=== PATIENT | male | born 1990 | race Caucasian/White ===

== ENCOUNTER 2016-12-21 10:12 | Observation (INO) | payer OTHER ==
--- NOTE | 2016-12-21 11:14 | ED ---
General Adult HPI - General Chief complaint: Chest Pain Stated complaint: Chest/arm pain Time Seen by Provider: 12/21/16 10:30 Source: patient, RN notes reviewed Mode of arrival: ambulatory Limitations: no limitations - History of Present Illness Initial comments: This is a 26-year-old male who presents emergency Department complaining of chest pain. Patient states he has a strong family history of heart problems. Patient states over the last 2 weeks he has been having some left-sided chest pain starts off as sharp but then just becomes a dull ache and it usually last between one and 2 hours. Patient states he is noted that his worse if he takes a deep breath once the pain starts per patient states this happened almost every day. Patient does not notice it happening with exertion. Patient states he is not short of breath but it hurts to breathe so he doesn't take deep breaths. Patient states yesterday it hurt so bad he passed out and his roommate told him he was passed out for about 10 minutes. Patient denies any significant pain currently patient denies any shortness of breath. Patient states that the pain earlier today radiated down his left arm and that is when he became concerned so he came to the emergency department. Patient denies any diaphoresis. Patient denies any nausea or vomiting. Patient denies abdominal pain. Patient denies any recent injury or trauma. Patient states that moving his upper some resistance does not cause him any pain in the chest. - Related Data Home Medications Medication Instructions Recorded Confirmed No Known Home Medications [No 08/16/15 12/21/16 Known Home Medications] Allergies Allergy/AdvReac Type Severity Reaction Status Date / Time No Known Allergies Allergy Verified 12/21/16 11:05 Review of Systems ROS Statement: Those systems with pertinent positive or pertinent negative responses have been documented in the HPI. ROS Other: All systems not noted in ROS Statement are negative. Past Medical History Past Medical History: No Reported History History of Any Multi-Drug Resistant Organisms: None Reported Past Surgical History: Hernia Repair Past Psychological History: No Psychological Hx Reported Smoking Status: Never smoker Past Alcohol Use History: Occasional Past Drug Use History: None Reported General Exam - General Exam Comments Initial Comments: GENERAL: Patient is well-developed and well-nourished. Patient is nontoxic and well- hydrated and is in distress. ENT: Neck is soft and supple. No significant lymphadenopathy is noted. Oropharynx is clear. Moist mucous membranes. Neck has full range of motion without eliciting any pain. EYES: The sclera were anicteric and conjunctiva were pink and moist. Extraocular movements were intact and pupils were equal round and reactive to light. Eyelids were unremarkable. PULMONARY: Unlabored respirations. Good breath sounds bilaterally. No audible rales rhonchi or wheezing was noted. CARDIOVASCULAR: There is a regular rate and rhythm without any murmurs gallops or rubs. Slightly tender in the lateral aspect of the left chest wall to palpation. ABDOMEN: Soft and nontender with normal bowel sounds. No palpable organomegaly was noted. There is no palpable pulsatile mass. SKIN: Skin is clear with no lesions or rashes and otherwise unremarkable. NEUROLOGIC: Patient is alert and oriented x3. Cranial nerves II through XII are grossly intact. Motor and sensory are also intact. Normal speech, volume and content. Symmetrical smile. MUSCULOSKELETAL: Normal extremities with adequate strength and full range of motion. No lower extremity swelling or edema. No calf tenderness. LYMPHATICS: No significant lymphadenopathy is noted PSYCHIATRIC: Normal psychiatric evaluation. Normal interpersonal interactions appears functionally intact in deals appropriately with others. No signs of depression. No signs of anxiety. Limitations: no limitations Course Vital Signs 12/21/16 10:20 Temperature 98.0 F Pulse Rate 106 H Respiratory 20 Rate Blood Pressure 113/69 O2 Sat by Pulse 99 Oximetry Medical Decision Making - Medical Decision Making EKG shows normal sinus rhythm at 73 bpm [place] interval is 132 QRS is 92 QT interval 378 QTC is 416. Patient's EKG shows no ST segment elevation or depression or T-wave abdomen is noted. I compared this to an old EKG and is unchanged from the old EKG. Patient's chest x-ray is normal. 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 - Lab Data Result diagrams: 12/21/16 11:34 12/21/16 11:34 Lab Results 12/21/16 12/21/16 12/21/16 Range/Units 11:34 11:34 11:34 WBC 6.7 (3.8-10.6) k/uL RBC 5.53 (4.30-5.90) m/uL Hgb 16.4 (13.0-17.5) gm/dL Hct 45.9 (39.0-53.0) % MCV 83.0 (80.0-100.0) fL MCH 29.7 (25.0-35.0) pg MCHC 35.8 (31.0-37.0) g/dL RDW 12.5 (11.5-15.5) % Plt Count 307 (150-450) k/uL Neutrophils % 70 % Lymphocytes % 21 % Monocytes % 6 % Eosinophils % 1 % Basophils % 1 % Neutrophils # 4.7 (1.3-7.7) k/uL Lymphocytes # 1.4 (1.0-4.8) k/uL Monocytes # 0.4 (0-1.0) k/uL Eosinophils # 0.1 (0-0.7) k/uL Basophils # 0.1 (0-0.2) k/uL PT (9.0-12.0) sec INR (<1.1) APTT (22.0-30.0) sec D-Dimer (<0.60) mg/L FEU Sodium 144 (137-145) mmol/L Potassium 4.4 (3.5-5.1) mmol/L Chloride 105 (98-107) mmol/L Carbon Dioxide 26 (22-30) mmol/L Anion Gap 13 mmol/L BUN 10 (9-20) mg/dL Creatinine 1.06 (0.66-1.25) mg/dL Est GFR (MDRD) Af Amer >60 (>60 ml/min/1.73 sqM) Est GFR (MDRD) Non-Af >60 (>60 ml/min/1.73 sqM) Glucose 96 (74-99) mg/dL Calcium 10.0 (8.4-10.2) mg/dL Magnesium 2.2 (1.6-2.3) mg/dL Total Bilirubin 1.2 (0.2-1.3) mg/dL AST 19 (17-59) U/L ALT 27 (21-72) U/L Alkaline Phosphatase 60 (38-126) U/L Total Creatine Kinase 97 (55-170) U/L CK-MB (CK-2) 0.5 (0.0-2.4) ng/mL CK-MB (CK-2) Rel Index 0.5 Troponin I <0.012 (0.000-0.034) ng/mL Total Protein 7.6 (6.3-8.2) g/dL Albumin 4.7 (3.5-5.0) g/dL 12/21/16 Range/Units 11:34 WBC (3.8-10.6) k/uL RBC (4.30-5.90) m/uL Hgb (13.0-17.5) gm/dL Hct (39.0-53.0) % MCV (80.0-100.0) fL MCH (25.0-35.0) pg MCHC (31.0-37.0) g/dL RDW (11.5-15.5) % Plt Count (150-450) k/uL Neutrophils % % Lymphocytes % % Monocytes % % Eosinophils % % Basophils % % Neutrophils # (1.3-7.7) k/uL Lymphocytes # (1.0-4.8) k/uL Monocytes # (0-1.0) k/uL Eosinophils # (0-0.7) k/uL Basophils # (0-0.2) k/uL PT 11.4 (9.0-12.0) sec INR 1.1 (<1.1) APTT 27.7 (22.0-30.0) sec D-Dimer <0.17 (<0.60) mg/L FEU Sodium (137-145) mmol/L Potassium (3.5-5.1) mmol/L Chloride (98-107) mmol/L Carbon Dioxide (22-30) mmol/L Anion Gap mmol/L BUN (9-20) mg/dL Creatinine (0.66-1.25) mg/dL Est GFR (MDRD) Af Amer (>60 ml/min/1.73 sqM) Est GFR (MDRD) Non-Af (>60 ml/min/1.73 sqM) Glucose (74-99) mg/dL Calcium (8.4-10.2) mg/dL Magnesium (1.6-2.3) mg/dL Total Bilirubin (0.2-1.3) mg/dL AST (17-59) U/L ALT (21-72) U/L Alkaline Phosphatase (38-126) U/L Total Creatine Kinase (55-170) U/L CK-MB (CK-2) (0.0-2.4) ng/mL CK-MB (CK-2) Rel Index Troponin I (0.000-0.034) ng/mL Total Protein (6.3-8.2) g/dL Albumin (3.5-5.0) g/dL Disposition Clinical Impression: Chest pain, Syncope Disposition: ADMITTED IP TO THIS [facility] Time of Disposition: 12:30
[2016-12-21 11:44] LABS: Basophils # (A) 0.1 k/uL (0-0.2); Basophils % (A) 1 %; CHCM 36.2; Eosinophils # (A) 0.1 k/uL (0-0.7); Eosinophils % (A) 1 %; HCT 45.9 % (39.0-53.0); HDW 2.67; HGB 16.4 gm/dL (13.0-17.5); Luc # (Auto) 0.08; Luc % (Auto) 1; Lymphocytes # (A) 1.4 k/uL (1.0-4.8); Lymphocytes % (A) 21 %; MCH 29.7 pg (25.0-35.0); MCHC 35.8 g/dL (31.0-37.0); Mean Platelet Volume 7.4; Monocytes # (A) 0.4 k/uL (0-1.0); Monocytes % (A) 6 %; Neutrophils # (A) 4.7 k/uL (1.3-7.7); Neutrophils % (A) 70 %; RBC 5.53 m/uL (4.30-5.90); RDW 12.5 % (11.5-15.5); WBC 6.7 k/uL (3.8-10.6); WBC (Perox) 6.32
--- NOTE | 2016-12-21 11:49 | XR ---
EXAMINATION TYPE: XR chest 2V DATE OF EXAM: 12/21/2016 11:46 AM COMPARISON: 08/16/2015 TECHNIQUE: PA and lateral views submitted. HISTORY: Chest pain FINDINGS: The lungs are clear and there is no pneumothorax, pleural effusion, or focal pneumonia. Biapical pl eural thickening noted. IMPRESSION: 1. No acute process.
[2016-12-21 12:00] LABS: ALT 27 U/L (21-72); AST 19 U/L (17-59); Alkaline Phosphatase 60 U/L (38-126); Anion Gap 13 mmol/L; Blood Urea Nitrogen 10 mg/dL (9-20); Carbon Dioxide 26 mmol/L (22-30); Chloride 105 mmol/L (98-107); Glucose 96 mg/dL (74-99); Magnesium 2.2 mg/dL (1.6-2.3); Non-African American GFR(MDRD) >60 (>60 ml/min/1.73 sqM); Potassium 4.4 mmol/L (3.5-5.1); Sodium 144 mmol/L (137-145); Total Bilirubin 1.2 mg/dL (0.2-1.3); Total Protein 7.6 g/dL (6.3-8.2)
[2016-12-21 12:04] LABS: Creatine Kinase 97 U/L (55-170)
[2016-12-21 12:06] LABS: INR 1.1 (<1.1); Partial Thromboplastin Time 27.7 sec (22.0-30.0); Prothrombin Time 11.4 sec (9.0-12.0)
[2016-12-21 12:17] LABS: Creatine Kinase MB 0.5 ng/mL (0.0-2.4); Troponin I <0.012 ng/mL (0.000-0.034)
[2016-12-21] MEDS ORDERED: NITROGLYCERIN SL TABS 0.4 MG TAB SUBLINGUAL PRN (12:30)
[2016-12-21 12:33] VITALS: BP 108/71; PULSE 70; RESP 18; TEMP 98.1
[2016-12-22] MEDS ORDERED: ASPIRIN 325 MG TAB PO SCH (09:00)
== END 2016-12-21 13:05 | disposition left against medical advice (07) ==
LOC: EC 10:12 → 6SEL 12:30
PROVIDERS: ADMIT Family Medicine; ATTEND Family Medicine
DX: R07.9 Chest pain, unspecified (principal); R55 Syncope and collapse
CPT/HCPCS: 36415; 93005; 85379; 80053; 82550; 82553; 83735; 84484; 85025; 85610; 85730; 71020; 99285; G0378

== ENCOUNTER → 2017-01-31 | Outpatient (CLI) | payer OTHER ==
--- NOTE | 2017-02-01 06:55 | MR ---
EXAMINATION TYPE: MR orbits wo/w con DATE OF EXAM: 01/31/2017 8:39 PM COMPARISON: NONE HISTORY: Oral lesion of mucosa, rt upper side of mouth near wisdom tooth, evaluate lesion prior to reed ving wisdom teeth removed TECHNIQUE: Multiplanar, multisequence images of the brain and brainstem is performed without and with IV contras t, utilizing 13 mL intravenous MultiHance . Orbital protocol. FINDINGS: No suspicious solid or cystic mass or abnormal fluid collection is seen near level of right maxillary molar teeth. No suspicious enhancement is identified. No obvious bony destruction is seen. Visualized portion of paranasal sinuses are clear. Visualized globes are intact bilaterally. Visualiz ed portion of brain parenchyma is unremarkable without gross hydrocephalus. No suspicious fluid signa l seen in mastoid air cells. No suspicious cerebellopontine angle masses are identified bilaterally. Midline morphology is maintained on sagittal images. IMPRESSION: No significant finding is seen to account for patient's symptoms.
== END | disposition home or self-care (01) ==
LOC: RADMRIMAIN 19:24
PROVIDERS: ATTEND Family Medicine
DX: K13.79 Other lesions of oral mucosa (principal)
CPT/HCPCS: 70543; A9577